=== PATIENT | female | born 1960 | race African-American/Black ===

== ENCOUNTER 2018-05-15 15:04 | Observation (INO) | payer OTHER ==
[2018-05-15] MEDS ORDERED: methylPREDNISolone NA SUCC 125 MG/2 ML VIAL IVPB ONE (16:04)
[2018-05-15] MEDS ORDERED: hydrOXYzine HCL 25 MG TABLET (FP) PO ONE (16:04)
[2018-05-15] MEDS ORDERED: FAMOTIDINE 20 MG/50 ML IVPB 20 MG/50 ML MG IVPB ONE ×3 (16:23→16:30)
[2018-05-15] MEDS ORDERED: SODIUM CHLORIDE 1,000 ML IV STA (16:23)
--- NOTE | 2018-05-15 16:23 | PDOC ---
History of Present Illness - General Stated Complaint: RESPIRATORY PROBLEMS Time Seen by Provider: 05/15/18 15:12 - History of Present Illness Initial Comments: 05/15/18 16:17 57 F with h/o HTN, COPD presenting to ED with rash x 2 days. Pt states that she first noticed the rash yesterday after eating at [employer]. She reports having eggs, potatoes, and omani toast with maple syrup. Shortly after eating, she developed a rash on her chin and neck. Pt denies any tongue swelling, denies SOB , denies difficulty swallowing or speaking. Pt took benadryl and applied hydrocortisone ointment with mild improvement in her symptoms. Today, she ate eggs for breakfast and reports breaking out in a rash all over her body. Pt denies any F/C. Denies any other symptoms other than rash. No h/o prior allergic reactions. No new medications. No new soaps/detergents. Past History - Past Medical History Allergies/Adverse Reactions: Allergies Allergy/AdvReac Type Severity Reaction Status Date / Time No Known Allergies Allergy Verified 11/17/17 13:25 Home Medications: Ambulatory Orders Enalapril Maleate 20 mg PO DAILY 11/17/17 Metoprolol Succinate 40 mg PO DAILY 11/17/17 Omeprazole 20 mg PO DAILY 11/17/17 Procardia Xl 90 mg PO DAILY 11/17/17 Simvastatin 40 mg PO HS 11/17/17 Singulair 1 tab PO HS 11/17/17 Hydrochlorothiazide [Hctz -] 1 cap PO DAILY 12/01/17 Hydroxyzine HCl 25 mg PO Q6H PRN #20 tablet 05/16/18 Anemia: No Asthma: Yes COPD: Yes DVT: No Dementia: No Diabetes: Yes Dialysis: No GI Disorders: No Disorders: No HTN: Yes Hypercholesterolemia: Yes Kidney Stones: No Liver Disease: No Psychiatric Problems: No Seizures: No Thyroid Disease: No Lung CA: No Other medical history: Glaucoma - Surgical History Abdominal Surgery: No Appendectomy: No Cardiac Surgery: No Cholecystectomy: No Gastric Stapling: No GI Surgery: No Lung Surgery: No Neurologic Surgery: No - Immunization History Immunization Up to Date: Yes - Suicide/Smoking/Psychosocial Hx Smoking History: Never smoked Have you smoked in the past 12 months: No Number of Cigarettes Smoked Daily: 0 If you are a former smoker, when did you quit?: 2000 Cigars Per Day: 0 Information on smoking cessation initiated: Yes 'Breaking Loose' booklet given: 05/12/18 Hx Alcohol Use: No Drug/Substance Use Hx: No Substance Use Type: None Review of Systems - Review of Systems Comments:: 05/15/18 16:21 "GENERAL/CONSTITUTIONAL: No fever or chills. No weakness. HEAD, EYES, EARS, NOSE AND THROAT: No change in vision. No ear pain or discharge. No sore throat. CARDIOVASCULAR: No chest pain or shortness of breath. RESPIRATORY: No cough, wheezing, or hemoptysis. GASTROINTESTINAL: No nausea, vomiting, diarrhea or constipation. GENITOURINARY: No dysuria, frequency, or change in urination. MUSCULOSKELETAL: No joint or muscle swelling or pain. No neck or back pain. SKIN: + rash NEUROLOGIC: No headache, vertigo, loss of consciousness, or change in strength/ sensation. ENDOCRINE: No increased thirst. No abnormal weight change. HEMATOLOGIC/LYMPHATIC: No anemia, easy bleeding, or history of blood clots. ALLERGIC/IMMUNOLOGIC: No hives or skin allergy. " *Physical Exam - Vital Signs Last Vital Signs Temp Pulse Resp BP Pulse Ox 98.6 F 105 H 22 139/40 96 05/15/18 15:15 05/15/18 15:15 05/15/18 15:15 05/15/18 15:15 05/15/18 15:15 - Physical Exam Comments: 05/15/18 16:22 "GENERAL: Awake, alert, and fully oriented, in no acute distress. HEAD: No signs of trauma EYES: PERRLA, EOMI, sclera anicteric, conjunctiva clear ENT: Auricles normal inspection, hearing grossly normal, nares patent, oropharynx clear without exudates. Moist mucosa NECK: Nontender, no stepoffs, Normal ROM, supple, no lymphadenopathy, JVD, or masses LUNGS: Breath sounds equal, clear to auscultation bilaterally. No wheezes, and no crackles HEART: Regular rate and rhythm, normal S1 and S2, no murmurs, rubs or gallops ABDOMEN: Soft, nontender, normoactive bowel sounds. No guarding, no rebound. No masses EXTREMITIES: Normal range of motion, no edema. No clubbing or cyanosis. No cords, erythema, or tenderness NEUROLOGICAL: Cranial nerves II through XII intact. 5/5 strength and sensation in all extremities, Normal speech, normal gait, normal cerebellar function SKIN: diffuse maculopapular rash to face, neck, chest, back, arms, legs - no oral lesions, no palmar involvement " ED Treatment Course - LABORATORY CBC & Chemistry Diagram: 05/16/18 07:28 05/16/18 07:28 Medical Decision Making - Medical Decision Making 05/15/18 16:22 57 F with rash x 2 days. Likely allergic reaction, possibly to eggs. Pt with no airway involvement. No other organ system involvement, no evidence of anaphylaxis. - Atarax - Solumedrol *DC/Admit/Observation/Transfer Diagnosis at time of Disposition: Urticaria - Discharge Dispostion Disposition: HOME Condition at time of disposition: Improved - Prescriptions - Referrals - Patient Instructions - Post Discharge Activity - Attestations Physician Attestion: 05/17/18 08:33 I, Dr. Ravin Crandall MD, attest that this document has been prepared under my direction and personally reviewed by me in its entirety. I further attest, that it accurately reflects all work, treatment, procedures and medical decision -making performed by me.
[2018-05-15] MEDS ORDERED: methylPREDNISolone NA SUCC 125 MG/2 ML VIAL ONE (16:29)
--- NOTE | 2018-05-15 18:11 | PDOC ---
*Physical Exam - Vital Signs Last Vital Signs Temp Pulse Resp BP Pulse Ox 98.6 F 105 H 22 139/40 96 05/15/18 15:15 05/15/18 15:15 05/15/18 15:15 05/15/18 15:15 05/15/18 15:15 - Physical Exam Comments: 05/15/18 18:06 VSS, O2 98% room air comfortably asleep but arousable to voice after meds no rash, no swelling, itching resolved OP clear and patient, voice clear, lungs clear 05/15/18 18:58 urticaria to LUE and single hive on L nondenominational. patient airway, clear lungs Heart Score/ECG Review #1 ECG reviewed & interpreted by me at: 18:47 General ECG Interpretation: Sinus Rhythm, Normal Rate (103), Normal Intervals ( qtc 461), No acute ischemic changes ED Treatment Course - LABORATORY CBC & Chemistry Diagram: 05/15/18 18:55 05/15/18 18:55 - Medications Given in the ED: ED Medications Discontinued Medications Generic Name Dose Route Start Last Admin Trade Name Freq PRN Reason Stop Dose Admin Hydroxyzine HCl 50 mg 05/15/18 16:04 05/15/18 16:06 Atarax - PO 05/15/18 16:05 50 mg ONCE ONE Administration Sodium Chloride 1,000 mls @ 1,000 mls/hr 05/15/18 16:23 05/15/18 16:25 Normal Saline - IV 05/15/18 17:22 1,000 mls/hr ASDIR STA Administration Famotidine/Sodium Chloride 20 mg in 50 mls @ 100 mls/hr 05/15/18 16:23 16:25 Pepcid 20 Mg Premixed Ivpb - IVPB 05/15/18 16:52 100 mls/hr ONCE ONE Administration Methylprednisolone Sodium Succinate 125 mg 05/15/18 16:04 05/15/18 16:06 Solu-Medrol - IVPB 05/15/18 16:05 125 mg ONCE ONE Administration Medical Decision Making - Medical Decision Making 05/15/18 18:07 Received signout on this 57-year-old woman with likely new onset food ALLERGY, presented with hives but otherwise hemodynamically stable. She took Benadryl prior to arrival, received Atarax/steroids/ranitidine on arrival here and has been progressively improving over the last 3 hours. Her symptoms have now resolved, she never had airway or respiratory issues, feels much more comfortable. Will need ALLERGY testing as an outpatient, will need steroid course and will prescribe EpiPen, lives in the area and will take a taxi/bus home, understands return criteria. 05/15/18 18:38 Upon reassessment for discharge, patient noted return of itching to her L arm. Hives again noted to L arm and a single one on her L nondenominational. Will give another dose of benadryl. No airway issues. Given ongoing allergy symptoms and repeat doses, will place on observation. 05/15/18 20:11 Accepted for obs med/surg by Dr. Caraballo, signout given to Dr. Cruz. *DC/Admit/Observation/Transfer Diagnosis at time of Disposition: Urticaria - Discharge Dispostion Condition at time of disposition: Improved Decision to Admit order: Yes - Prescriptions Prescriptions: Epinephrine [Epipen 2-Yayo] 0.3 mg IJ ASDIR #1 kit Prednisone [Prednisone 50 MG TABLETS] 50 mg PO DAILY #5 tablet - Referrals Referrals: Kailee Gallegos MD [Staff Physician] - - Patient Instructions Additional Instructions: Activity as tolerated. Stay hydrated. Your symptoms are most likely due to an ALLERGIC reaction, the source of the ALLERGIC reaction remains unknown but might be eggs. Take prednisone as prescribed for the next 5 days. You may need additional doses of Benadryl for any rash or itching, especially over the next 24 hours while the prednisone begins to work. EpiPen was also prescribed, carry it with you at all times and use as needed for any sudden or severe ALLERGIC reaction such as throat closing or difficulty breathing. Continue your medications as previously prescribed by your physician. You should follow up with your primary doctor as soon as possible regarding today's emergency department visit. You should also see a vacuum extractor operator or salon stylist as soon as possible for ALLERGY testing, consider calling Dr. Gallegos for an appointment. Return to the emergency department for any new or concerning symptoms, particularly persistent or worsening rash or itching, throat swelling or difficulty breathing/swallowing/speaking, shortness of breath. - Post Discharge Activity
[2018-05-15 19:04] LABS: HEMATOCRIT 44.6 % (32.4-45.2); HEMOGLOBIN 14.6 GM/dL (10.7-15.3); MCH 27.6 pg (25.7-33.7); MCHC 32.8 g/dl (32.0-36.0); MEAN CELL VOLUME 84.3 fl (80-96); MEAN PLT VOLUME 8.4 fl (7.5-11.1); PLATELET COUNT 181 K/MM3 (134-434); RBC 5.29 M/mm3 (3.60-5.2); RDW 15.3 % (11.6-15.6); WHITE BLOOD COUNT 16.4 K/mm3 (4.0-10.0)
[2018-05-15 19:48] LABS: ALBUMIN 3.6 g/dl (3.4-5.0); ANION GAP 9 (8-16); BLOOD UREA NITROGEN 15 mg/dL (7-18); CALCIUM 8.6 mg/dL (8.5-10.1); CHLORIDE 107 mmol/L (98-107); CO2 27 mmol/L (21-32); GLUCOSE,RANDOM 94 mg/dL (74-106); POTASSIUM 3.7 mmol/L (3.5-5.1); SODIUM 143 mmol/L (136-145)
[2018-05-15 19:52] LABS: ALK PHOS 93 U/L (45-117); BILIRUBIN,TOTAL 0.9 mg/dL (0.2-1.0); CREATININE 1.2 mg/dL (0.55-1.02); SGOT/AST 19 U/L (15-37); SGPT/ALT 27 U/L (12-78); TOT PROT 6.9 g/dl (6.4-8.2)
[2018-05-15 22:47] VITALS: BMI 41.1
[2018-05-15] MEDS ORDERED: diphenhydrAMINE HCL 25 MG CAPSULE (FP) PO PRN (23:27)
[2018-05-15] MEDS ORDERED: IBUPROFEN 400 MG TABLET (FP) PO PRN (23:28)
--- NOTE | 2018-05-15 23:29 | HP ---
CHIEF COMPLAINT: Generalized itchy rashes PCP: HISTORY OF PRESENT ILLNESS: Pt is a 57 F with PMHx of HTN, asthma/COPD, Vertigo, glaucoma, HLD, Acid reflux , DM presenting to ED with recurrent generalized rash x 2 days. Pt noticed the rash yesterday while driving home from [facility] after eating eggs, potatoes, and equatorial guine[place] toast with maple syrup. The rash started on her chin and neck and then spread all over her axilla, abdomen, groin, gluteal area, itchy, red and elevated. No associated tongue swelling, no SOB, no difficulty swallowing or speaking. Pt took benadryl and applied hydrocortisone ointment repeatedly with mild improvement in her symptoms. She came to the ED today because of the worsening itch and rash. Never had similar symptoms in past. Pt is asthmatic on albuterol. No change in medication, soap, perfume. In the ED she received steroids and H1 and H2 blockers with no relief initially. ER course was notable for: (1) CBC, hydroxyzine, benadry, pepcid, solumed (2) (3) Recent Travel: PAST MEDICAL HISTORY: HTN, asthma/COPD, Vertigo, glaucoma, HLD, Acid reflux, DM PAST SURGICAL HISTORY: Social History: Smoking: Quit smoking 1.5 packs/day 17years ago Alcohol:wine x2 a day Drugs: Denies Family History: Allergies No Known Allergies Allergy (Verified 11/17/17 13:25) HOME MEDICATIONS: Home Medications Medication Instructions Recorded Enalapril Maleate 20 mg PO DAILY 11/17/17 Ibuprofen 800 mg PO DAILY PRN 11/17/17 Metoprolol Succinate 40 mg PO DAILY 11/17/17 Omeprazole 20 mg PO DAILY 11/17/17 Procardia Xl 90 mg PO DAILY 11/17/17 Simvastatin 40 mg PO HS 11/17/17 Singulair 1 tab PO HS 11/17/17 Hydrochlorothiazide [Hctz -] 1 cap PO DAILY 12/01/17 REVIEW OF SYSTEMS CONSTITUTIONAL: Absent: fever, chills, diaphoresis, generalized weakness, malaise, loss of appetite, weight change HEENT: Absent: rhinorrhea, nasal congestion, throat pain, throat swelling, difficulty swallowing, mouth swelling, ear pain, eye pain, visual changes CARDIOVASCULAR: Absent: chest pain, syncope, palpitations, irregular heart rate, lightheadedness , peripheral edema RESPIRATORY: Has SOB at rest consistent with her asthma that did not change with rash GASTROINTESTINAL: Absent: abdominal pain, abdominal distension, nausea, vomiting, diarrhea, constipation, melena, hematochezia GENITOURINARY: Absent: dysuria, frequency, urgency, hesitancy, hematuria, flank pain, genital pain MUSCULOSKELETAL: Absent: myalgia, arthralgia, joint swelling, back pain, neck pain SKIN: Absent: rash, itching, pallor HEMATOLOGIC/IMMUNOLOGIC: Absent: easy bleeding, easy bruising, lymphadenopathy, frequent infections ENDOCRINE: Absent: unexplained weight gain, unexplained weight loss, heat intolerance, cold intolerance NEUROLOGIC: Absent: headache, focal weakness or paresthesias, dizziness, unsteady gait, seizure, mental status changes, bladder or bowel incontinence PSYCHIATRIC: Absent: anxiety, depression, suicidal or homicidal ideation, hallucinations. PHYSICAL EXAMINATION Vital Signs - 24 hr 05/15/18 05/15/18 05/15/18 15:15 20:12 20:19 Temperature 98.6 F 98.7 F 98.6 F Pulse Rate 105 H 94 H Pulse Rate [ 81 Right Radial] Respiratory 22 20 18 Rate Blood Pressure 139/40 129/55 Blood Pressure 121/61 [Right Arm] O2 Sat by Pulse 96 97 Oximetry (%) 05/15/18 05/15/18 21:30 22:50 Temperature Pulse Rate Pulse Rate [ Right Radial] Respiratory Rate Blood Pressure Blood Pressure [Right Arm] O2 Sat by Pulse 95 98 Oximetry (%) GENERAL: Obese lady, Awake, alert, and fully oriented, in no acute distress. HEAD: Normal with no signs of trauma. Few erythematous rashes on forehead and chin, EYES: Pupils equal, round and reactive to light, extraocular movements intact EARS, NOSE, THROAT: Moist mucous membranes. No tongue swelling, no oral rashes LUNGS: Breath sounds equal, clear to auscultation bilaterally. No wheezes, and no crackles. HEART: Regular rate and rhythm, normal S1 and S2 without murmur ABDOMEN: obese, Soft, nontender, not distended, normoactive bowel sounds, MUSCULOSKELETAL: scattered red raised raashes scattered over neck, axilla, flanks bilaterally, intergluteal fold, groin, below breasts, itchy LOWER EXTREMITIES: No peripheral edema. old non active hyperpigmented flat skin lesions NEUROLOGICAL: AAOx 3 .No lateralizing signs, moves all limbs CBC, BMP 05/16/18 07:28 05/16/18 07:28 Laboratory Results - last 24 hr 05/15/18 05/15/18 18:55 18:55 WBC 16.4 H RBC 5.29 H Hgb 14.6 Hct 44.6 MCV 84.3 MCH 27.6 MCHC 32.8 RDW 15.3 Plt Count 181 MPV 8.4 Sodium 143 Potassium 3.7 Chloride 107 Carbon Dioxide 27 Anion Gap 9 BUN 15 Creatinine 1.2 H Creat Clearance w eGFR 45.98 Random Glucose 94 Calcium 8.6 Total Bilirubin 0.9 AST 19 ALT 27 Alkaline Phosphatase 93 Total Protein 6.9 Albumin 3.6 ASSESSMENT/PLAN: 57 F with PMHx of HTN, asthma/COPD, Vertigo, glaucoma, HLD, Acid reflux, DM presenting to ED with recurrent generalized urticarial rash Generalized Urticarial maculopapular rash Likely allergic reaction with Unknown triggers Patient is likely atopic with hx of asthma, could be food related allergy maybe to eggs Lesions starting to improve on reassessment following steroids and H1 and H2 antags Start prednisone 40mg PO daily Continue benadryl 25mg PO prn 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 CBC w/diff Tachycardia EKG-Sinus tachy (103), Normal Intervals (qtc 461), No acute ischemic changes Initial tachycardia, that resolved Could be related to itch discomfort, Resume home metoprolol Leucocytosis Unknown etiology Could be related to steroids given CBC with diff Monitor Hold off antibiotics for now HTN BP relatively well controlled Cont home Hydrochlorothiazide, enalapril, metoprolol Med rec when possible asthma/COPD Not in active exacerbation Continue home singulair AJ Cr-1.2 Baseline unknown Cr clearance 45 Monitor , repeat CMP DM Pt reported hx relatively euglycemic Monitor PPx heparin sc FEN No standing fluids at this time-pt appears euvolemic Monitor lytes,mg, Ph Diabetic/low sodium diet Dispo Observation for likely dc in am with improvement of symptoms Visit type - Emergency Visit Emergency Visit: Yes ED Registration Date: 05/15/18 Care time: The patient presented to the Emergency Department on the above date and was hospitalized for further evaluation of their emergent condition. - New Patient This patient is new to me today: Yes Date on this admission: 05/16/18 - Critical Care Critical Care patient: No Hospitalist Screening - Colonoscopy Questionnaire Colonoscopy Questionnaire: Colonoscopy Questionnaire - Patient: 50 - 75 years old and never had a screening colonoscopy: Unknown History of colon or rectal polyps, or CA: Unknown History of IBD, Crohn's disease or UC: Unknown History of abdominal radiation therapy as a child: Unknown - Relative: 1 with colon or rectal CA, or polyps at age 60 or younger: Unknown Colon or rectal CA diagnosed at age 45 or younger: Unknown Multiple relatives with colon or rectal CA: Unknown - Outcome: Screening Result: Negative Screen
--- NOTE | 2018-05-15 23:36 | PN ---
Teaching Attending Note Name of Resident: Migdalia Cruz ATTENDING PHYSICIAN STATEMENT I saw and evaluated the patient. Chart, data, imaging reviewed. I reviewed the resident's note and discussed the case with the resident. I agree with the resident's findings and plan as documented. SUBJECTIVE: 57 F with h/o HTN and asthma/COPD c/o of rash which started after she ate set[place] toast at [employer] one day ago. Rash was pruritic and started on chin and spread to torso and upper extremities. This started abruptly. Pt denied taking any new medications or cosmetics. No other unusual foods that she can recall. No recent travels. There were no problems with breathing. OBJECTIVE: Last Vital Signs Temp Pulse Resp BP Pulse Ox 98.6 F 81 18 121/61 98 05/15/18 20:19 05/15/18 20:19 05/15/18 20:19 05/15/18 20:19 05/15/18 22:50 general- nad, appears comfortable heent- at, nc, no ulcers in mouth neck -supple cv-s1+S2+rrr chest - cta b/l abdomen- soft, nt skin -raised erythematous rash on torso and upper extremities Abnormal Lab Results 05/15/18 05/15/18 18:55 18:55 WBC 16.4 H RBC 5.29 H Creatinine 1.2 H ASSESSMENT AND PLAN: #57yo woman with urticartia unknown trigger but may have been food allergy. CLinically and hemodynamically stable. 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 -order CBC differential -monitor CBC -no antibiotics at this time -DVT ppx- heparin sc
[2018-05-16 04:17] VITALS: PULSE 97
[2018-05-16 08:12] LABS: BASO % 0.3 % (0-2.0); HEMATOCRIT 42.3 % (32.4-45.2); LYMPH % 7.1 % (8-40); MEAN PLT VOLUME 8.7 fl (7.5-11.1); MONO % 2.2 % (3.8-10.2); NEUT % 90.4 % (42.8-82.8); PLATELET COUNT 169 K/MM3 (134-434); RBC 4.98 M/mm3 (3.60-5.2); RDW 15.4 % (11.6-15.6); WHITE BLOOD COUNT 14.7 K/mm3 (4.0-10.0)
[2018-05-16 08:28] LABS: ALBUMIN 3.4 g/dl (3.4-5.0); ALK PHOS 86 U/L (45-117); ANION GAP 8 (8-16); BILIRUBIN,TOTAL 0.5 mg/dL (0.2-1.0); BLOOD UREA NITROGEN 17 mg/dL (7-18); CALCIUM 9.1 mg/dL (8.5-10.1); CHLORIDE 107 mmol/L (98-107); CO2 28 mmol/L (21-32); CREATININE 1.2 mg/dL (0.55-1.02); GLUCOSE,RANDOM 146 mg/dL (74-106); MAGNESIUM 2.5 mg/dL (1.8-2.4); PHOSPHOROUS 2.8 mg/dL (2.5-4.9); POTASSIUM 3.9 mmol/L (3.5-5.1); SGOT/AST 13 U/L (15-37); SGPT/ALT 26 U/L (12-78); SODIUM 143 mmol/L (136-145); TOT PROT 6.8 g/dl (6.4-8.2)
[2018-05-16] MEDS ORDERED: HYDROCHLOROTHIAZIDE 25 MG TABLET (FP) PO SCH (10:00)
[2018-05-16] MEDS ORDERED: ENALAPRIL MALEATE 10 MG TABLET (FP) PO SCH (10:00)
[2018-05-16] MEDS ORDERED: NIFEdipine E.R. 90 MG TABLET (FP) PO SCH (10:00)
[2018-05-16] MEDS ORDERED: predniSONE 20 MG TABLET (UD) PO SCH (10:00)
[2018-05-16] MEDS ORDERED: PANTOPRAZOLE 20 MG TABLET (FP) PO SCH (10:00)
[2018-05-16 10:09] VITALS: BP 120/77; TEMP 97.9
--- NOTE | 2018-05-16 10:23 | DS ---
Physical Exam: SUBJECTIVE: Patient seen and examined. rash mostly resolved. itchying resolved. states rash started PRIOR to going to [facility] but got exacerbated once she started eating. states she been having increased family stressors recently. no previous episodes. no new medications, creams or soaps OBJECTIVE: Vital Signs Period Temp Pulse Resp BP Sys/Mar Pulse Ox Last 24 Hr 97.9 F-98.7 F 81-105 18-22 116-139/40-77 95-99 PHYSICAL EXAM GENERAL: The patient is awake, alert, and fully oriented, in no acute distress. HEAD: Normal with no signs of trauma. EYES: PERRL, extraocular movements intact, sclera anicteric, conjunctiva clear. ENT: Ears normal, nares patent, oropharynx clear without exudates, moist mucous membranes. NECK: Trachea midline, full range of motion, supple. LUNGS: Breath sounds equal, clear to auscultation bilaterally, no wheezes, no crackles, no accessory muscle use. HEART: Regular rate and rhythm, S1, S2 without murmur, rub or gallop. ABDOMEN: Soft, nontender, nondistended, normoactive bowel sounds, no guarding, no rebound, no hepatosplenomegaly, no masses. EXTREMITIES: 2+ pulses, warm, well-perfused, no edema. NEUROLOGICAL: Cranial nerves II through XII grossly intact. Normal speech, gait not observed. PSYCH: Normal mood, normal affect. SKIN: Warm, dry, normal turgor, faint papular lesion on torso under axillae, no oozing or drainage noted. no rash appreciated on extremities LABS Laboratory Results - last 24 hr 05/15/18 05/15/18 05/16/18 18:55 18:55 07:28 WBC 16.4 H 14.7 H RBC 5.29 H 4.98 Hgb 14.6 14.0 Hct 44.6 42.3 MCV 84.3 85.0 MCH 27.6 28.0 MCHC 32.8 33.0 RDW 15.3 15.4 Plt Count 181 169 MPV 8.4 8.7 Absolute Neuts (auto) 13.3 Neutrophils % 90.4 H Lymphocytes % 7.1 L Monocytes % 2.2 L Eosinophils % 0.0 Basophils % 0.3 Nucleated RBC % 0 Sodium 143 Potassium 3.7 Chloride 107 Carbon Dioxide 27 Anion Gap 9 BUN 15 Creatinine 1.2 H Creat Clearance w eGFR 45.98 Random Glucose 94 Calcium 8.6 Phosphorus Magnesium Total Bilirubin 0.9 AST 19 ALT 27 Alkaline Phosphatase 93 Total Protein 6.9 Albumin 3.6 05/16/18 07:28 WBC RBC Hgb Hct MCV MCH MCHC RDW Plt Count MPV Absolute Neuts (auto) Neutrophils % Lymphocytes % Monocytes % Eosinophils % Basophils % Nucleated RBC % Sodium 143 Potassium 3.9 Chloride 107 Carbon Dioxide 28 Anion Gap 8 BUN 17 Creatinine 1.2 H Creat Clearance w eGFR 45.98 Random Glucose 146 H Calcium 9.1 Phosphorus 2.8 Magnesium 2.5 H Total Bilirubin 0.5 AST 13 L ALT 26 Alkaline Phosphatase 86 Total Protein 6.8 Albumin 3.4 HOSPITAL COURSE: Date of Admission:05/15/18 Date of Discharge: 05/16/18 Admitting diagnosis: Uticaria Pre hospital course 57 F with PMHx of HTN, asthma/COPD, Vertigo, glaucoma, HLD, Acid reflux, DM presenting to ED with recurrent generalized rash x 2 days. Pt noticed the rash yesterday while driving home from [facility] after eating eggs, potatoes, and hebrew toast with maple syrup. The rash started on her chin and neck and then spread all over her axilla, abdomen, groin, gluteal area, itchy, red and elevated. No associated tongue swelling, no SOB, no difficulty swallowing or speaking. Pt took benadryl and applied hydrocortisone ointment repeatedly with mild improvement in her symptoms. She came to the ED today because of the worsening itch and rash. Never had similar symptoms in past. Pt is asthmatic on albuterol. No change in medication, soap, perfume. In the ED she received steroids and H1 and H2 blockers with no relief initially. Subsequent hospital course was given solumedrol and benadryl in the ER. rash improved and pruritis resolved. expressed increased stress and anxiety of recently. stated pruritis started prior to going to [facility] however noted the rash after eating frenchtoast but states that she has eaten the same dish in the past. no tongue/lips numbness /tingling/swelling or throat closing. d/c home. surgical appliance fitter referral given Minutes to complete discharge: 40 Discharge Summary Reason For Visit: URTICARIA Current Active Problems Urticaria (Acute) Condition: Improved - Instructions Diet, Activity, Other Instructions: Activity as tolerated. Stay hydrated. Your symptoms are most likely due to an ALLERGIC reaction, the source of the ALLERGIC reaction versus stress. Take hydroxyzine every 6 hours as needed for itchying. This medication can be sedating. No driving or operating heavy machinery while taking this medication. You may also take benadryl if needed. Continue your medications as previously prescribed by your physician. You should follow up with your primary doctor this week Information on an surgical appliance fitter has been provided. You should get allergy testing done to rule out any allergies. Return to the emergency department for any new or concerning symptoms, particularly persistent or worsening rash or itching, throat swelling or difficulty breathing/swallowing/speaking, shortness of breath, numbness/ tingling of the lips or tongue Referrals: Bhavana Washington MD [Staff Physician] - - Home Medications Comprehensive Discharge Medication List: Ambulatory Orders Enalapril Maleate 20 mg PO DAILY 11/17/17 Metoprolol Succinate 40 mg PO DAILY 11/17/17 Omeprazole 20 mg PO DAILY 11/17/17 Procardia Xl 90 mg PO DAILY 11/17/17 Simvastatin 40 mg PO HS 11/17/17 Singulair 1 tab PO HS 11/17/17 Hydrochlorothiazide [Hctz -] 1 cap PO DAILY 12/01/17 Hydroxyzine HCl 25 mg PO Q6H PRN #20 tablet 05/16/18 This patient is new to me today: Yes Date on this admission: 05/16/18 Emergency Visit: Yes ED Registration Date: 05/15/18 Care time: The patient presented to the Emergency Department on the above date and was hospitalized for further evaluation of their emergent condition. Critical Care patient: No - Discharge Referral Referred to [facility] Med [facility] No
[2018-05-16] MEDS ORDERED: MONTELUKAST NA 10 MG TABLET PO SCH (22:00)
[2018-05-16] MEDS ORDERED: ATORVASTATIN CA 20 MG TABLET (FP) PO SCH (22:00)
--- NOTE | 2018-05-18 20:24 | EKG ---
Test Reason : Blood Pressure : / mmHG Vent. Rate : 100 BPM Atrial Rate : 100 BPM P-R Int : 144 ms QRS Dur : 068 ms QT Int : 352 ms P-R-T Axes : 058 006 030 degrees QTc Int : 454 ms POOR DATA QUALITY, INTERPRETATION MAY BE ADVERSELY AFFECTED NORMAL SINUS RHYTHM NORMAL ECG NO PREVIOUS ECGS AVAILABLE Confirmed by MD VARINDER, CONNIE ([id number]) on 05/18/2018 8:24:27 PM Referred By: Confirmed By:CONNIE REEDER MD
== END 2018-05-16 13:25 | disposition home or self-care (01) ==
LOC: JER 15:04 → JERBED 20:12 → J6S 22:26
PROVIDERS: ADMIT Internal Medicine; ATTEND Internal Medicine
PROC: 3E033NZ Introduction of Analgesics, Hypnotics, Sedatives into Peripheral Vein, Percutaneous Approach (ICD-10-PCS; principal; 2018-05-15)
PROC: 3E033GC Introduction of Other Therapeutic Substance into Peripheral Vein, Percutaneous Approach (ICD-10-PCS; 2018-05-15)
PROC: 3E0337Z Introduction of Electrolytic and Water Balance Substance into Peripheral Vein, Percutaneous Approach (ICD-10-PCS; 2018-05-15)
DX: L50.9 Urticaria, unspecified (principal); I10 Essential (primary) hypertension; R00.0 Tachycardia, unspecified; D72.829 Elevated white blood cell count, unspecified; J44.9 Chronic obstructive pulmonary disease, unspecified; E11.9 Type 2 diabetes mellitus without complications; E78.5 Hyperlipidemia, unspecified; H40.9 Unspecified glaucoma; N17.9 Acute kidney failure, unspecified
CPT/HCPCS: 36415; 80053; 83735; 84100; 85025; 85027; 93005; 93010; 96365; 96367; 99285-25; G0378; J7030

== ENCOUNTER 2018-09-10 10:22 | Day surgery (SDC) | payer OTHER ==
[2018-09-09 12:01] VITALS: BMI 35.6
[2018-09-10] MEDS ORDERED: ONDANSETRON 4 MG/2 ML VIAL IVPUSH PRN (12:07)
[2018-09-10] MEDS ORDERED: LACTATED RINGERS SOLUTION 1,000 ML IV SCH (12:15)
[2018-09-10] MEDS ORDERED: MIDAZOLAM HCL 2 MG/2 ML SINGLE DOSE VIAL ONE ×2 (12:25)
[2018-09-10] MEDS ORDERED: PROPOFOL 20 ML ONE (12:32)
[2018-09-10] MEDS ORDERED: SUCCINYLCHOLINE CHLORIDE 200 MG/10 ML VIAL ONE (12:32)
[2018-09-10] MEDS ORDERED: ceFAZolin SODIUM 1 GM VIAL IVPB ONE (12:50)
--- NOTE | 2018-09-10 14:34 | HP ---
Admitting History and Physical - Admission Chief Complaint: Left lower extremity varicose veins. Here for removal. Limitations to Obtaining History: No Limitations - Past Medical History Cardiovascular: Yes: HTN, Hyperlipdemia Pulmonary: Yes: Asthma, COPD Gastrointestinal: Yes: GERD Endocrine: Yes: Diabetes Mellitus - Smoking History Smoking history: Never smoked Have you smoked in the past 12 months: No Aproximately how many cigarettes per day: 0 If you are a former smoker, when did you quit?: 1999 - Alcohol/Substance Use Hx Alcohol Use: Yes (wine) Home Medications - Allergies Allergies/Adverse Reactions: Allergies Allergy/AdvReac Type Severity Reaction Status Date / Time No Known Allergies Allergy Verified 09/09/18 11:53 - Home Medications Home Medications: Ambulatory Orders Enalapril Maleate 20 mg PO DAILY 11/17/17 Metoprolol Succinate 40 mg PO DAILY 11/17/17 Omeprazole 20 mg PO DAILY 11/17/17 Procardia Xl 90 mg PO DAILY 11/17/17 Simvastatin 40 mg PO HS 11/17/17 Singulair 1 tab PO HS 11/17/17 Hydrochlorothiazide [Hctz -] 1 cap PO DAILY 12/01/17 Hydroxyzine HCl 25 mg PO Q6H PRN #20 tablet 05/16/18 Hydrocortisone 0.5% Cream [Hytone 0.5% Cream -] 1 applic TP BID #1 tube Albuterol 2.5/Ipratropium 0.5 [Duoneb -] 1 neb IH BID 09/02/18 Albuterol Sulfate Inhaler - [Ventolin Hfa Inhaler -] 1 - 2 inh PO QID 09/02/18 Fluticasone Propionate [Flovent Diskus] 220 mcg IH BID 09/02/18 Glipizide 5 mg PO DAILY 09/02/18 Meclizine HCl 25 mg PO TID 09/02/18 Review of Systems - Review of Systems Constitutional: reports: No Symptoms Eyes: reports: No Symptoms HENT: reports: No Symptoms Neck: reports: No Symptoms Cardiovascular: reports: No Symptoms Respiratory: reports: No Symptoms Gastrointestinal: reports: No Symptoms Genitourinary: reports: No Symptoms Musculoskeletal: reports: No Symptoms Integumentary: reports: No Symptoms Neurological: reports: No Symptoms Endocrine: reports: No Symptoms Hematology/Lymphatic: reports: No Symptoms Psychiatric: reports: No Symptoms Physical Examination Vital Signs: Vital Signs Temperature 98.1 F 09/10/18 11:04 Pulse Rate 85 09/10/18 11:04 Respiratory Rate 20 09/10/18 11:04 Blood Pressure 119/80 09/10/18 11:04 O2 Sat by Pulse Oximetry (%) 95 09/10/18 11:04 Constitutional: Yes: Well Nourished, No Distress, Calm Eyes: Yes: WNL, Conjunctiva Clear, EOM Intact HENT: Yes: WNL, Atraumatic, Normocephalic Neck: Yes: WNL, Supple, Trachea Midline Cardiovascular: Yes: WNL, Regular Rate and Rhythm Respiratory: Yes: WNL, Regular, CTA Bilaterally Gastrointestinal: Yes: WNL, Normal Bowel Sounds Musculoskeletal: Yes: WNL Extremities: Yes: WNL Edema: No Peripheral Pulses WNL: Yes Integumentary: Yes: WNL Neurological: Yes: WNL, Alert, Oriented ...Motor Strength: WNL Psychiatric: Yes: WNL Problem List - Problems (1) Varicose veins of left lower extremity Assessment/Plan: Varicose veins left lower extremity 1. For phlebectomy today Code(s): I83.92 - ASYMPTOMATIC VARICOSE VEINS OF LEFT LOWER EXTREMITY
--- NOTE | 2018-09-10 14:35 | OP ---
Operative Note - Note: Operative Date: 09/10/18 Pre-Operative Diagnosis: left lower extremity varicose veins Operation: Stab phlebectomy left lower extremity varicose veins. 15 stabs performed Post-Operative Diagnosis: Same as Pre-op Surgeon: Reji Wagoner Anesthesia: General, Fractional Estimated Blood Loss (mls): 150 Operative Report Dictated: Yes
[2018-09-10] MEDS ORDERED: oxyCODONE HCL 5 MG TABLET PO PRN (15:38)
[2018-09-10 19:09] VITALS: BP 114/69; PULSE 86; TEMP 97.9
--- NOTE | 2018-09-14 17:18 | PATH ---
Surgical Pathology Report Patient Name: PARISH VANESSA [facility]. Rec. #: [id number] /Age/Gender: 1960 (Age: 58) / F Account: [id number] Location: [facility] SURGICAL Taken: 09/10/2018 Received: 09/11/2018 Reported: 09/14/2018 Physicians: Reji Wagoner Specimen(s) Received VARICOSE VEINS Clinical History Varicose vein left leg Final Diagnosis VARICOSE VEINS, LOWER LEG, LEFT PHLEBECTOMY: VEINS WITH INTIMAL HYPERTROPHY AND FIBROSIS. Electronically Signed Shannan Hilliard M.D. Gross Description Received in formalin labeled "varicose veins," is a 4.0 x 3.0 x 0.6 cm aggregate of [place] portions of vasculature, consistent with varicose veins. Color Corrector sections are submitted in one cassette. 09/11/2018 saudi09/11/2018
--- NOTE | 2018-09-17 13:34 | OP ---
DATE OF OPERATION: 09/10/2018 PREOPERATIVE DIAGNOSIS: Left lower extremity varicose veins. POSTOPERATIVE DIAGNOSIS: Left lower extremity varicose veins. PROCEDURE: Stab phlebectomy left leg, 15 stabs. SURGEON: Reji Abbott DO ANESTHESIA: Fractional. BLOOD LOSS: 150 mL. INDICATIONS: The patient is a 58-year-old female that comes into ambulatory surgery with left lower extremity varicose veins. The varicosities are very painful and need to be removed. Patient came into ambulatory surgery. Patient was consented for the procedure understanding all risks, benefits, and alternatives. OPERATIVE FINDINGS: The patient was then brought into the operating room, laid on the operative table supine manner, and general anesthesia was administered to the patient. We then prepped and draped the left lower extremity in a sterile surgical manner. Prior to coming into the operating room patient was stood up in OR holding and all the varicosities were marked using a skin marker. Once the left leg was prepped and draped in a sterile surgical manner, we then went ahead and using an 11-blade we made small stabs over the varicosities and using vein hooks the vein was removed. All the veins were removed going from starting from the call all the way up into the thigh. In this manner, 15 stab incisions were made, and the varicosities were removed using vein hooks and mosquito clamps. Pressure was held over all the stab incisions due to bleeding and pressure was held and once bleeding subsided all of the stab incisions were closed using Steri-Strips. The leg was wet and dried, and 4 x 4's, Kerlix, and Angel bandage was placed from the foot all the way up into the thigh. The patient tolerated the procedure well with no complications. All varicose veins that were removed were sent to Pathology. Total blood loss 150 mL. Patient transferred to PACU in stable condition. REJI ABBOTT DO [employer]/[id number]
== END 2018-09-10 19:05 | disposition home or self-care (01) ==
LOC: JASU-SURG 10:22
PROVIDERS: ATTEND Surgery Vascular Surgery
PROC: 06BY0ZZ Excision of Lower Vein, Open Approach (ICD-10-PCS; principal; 2018-09-10 12:00)
DX: I83.812 Varicose veins of left lower extremity with pain (principal); E11.9 Type 2 diabetes mellitus without complications; J44.9 Chronic obstructive pulmonary disease, unspecified; I10 Essential (primary) hypertension; E66.9 Obesity, unspecified; M06.9 Rheumatoid arthritis, unspecified
CPT/HCPCS: 82962; 86850; 86900; 86901; 88304-TC; 94760

== ENCOUNTER 2021-10-25 16:09 | Emergency (ER) | payer OTHER ==
[2021-10-25 16:37] VITALS: BP 150/100; PULSE 97; TEMP 97.3; BMI 47.5
[2021-10-25] MEDS ORDERED: ALBUTEROL SO4 HFA INHALER IH ONE ×2 (17:23→17:42)
[2021-10-25 18:10] LABS: VENOUS BASE EXCESS 2.8 mmol/L (-2-2); VENOUS O2 SATURATION 84.2 % (70-80); VENOUS PCO2 47.8 mmHg (38-52); VENOUS PH 7.394 (7.310-7.410)
[2021-10-25 18:12] LABS: BASO % 0.5 % (0-2.0); HEMATOCRIT 46.2 % (32.4-45.2); HEMOGLOBIN 15.2 GM/dL (10.7-15.3); LYMPH % 16.9 % (8-40); MCH 27.6 pg (25.7-33.7); MCHC 32.8 g/dl (32.0-36.0); MONO % 7.9 % (3.8-10.2); NEUT % 73.7 % (42.8-82.8); PLATELET COUNT 80 10^3/uL (134-434); RDW 15.9 % (11.6-15.6)
[2021-10-25 18:35] LABS: CHLORIDE 106 mmol/L (98-107); SODIUM 143 mmol/L (136-145)
[2021-10-25 18:38] LABS: ALBUMIN 3.7 g/dl (3.4-5.0); ANION GAP 7 MMOL/L (8-16); BLOOD UREA NITROGEN 18.1 mg/dL (7-18); CALCIUM 9.3 mg/dL (8.5-10.1); CO2 29 mmol/L (21-32)
[2021-10-25 18:39] LABS: GLUCOSE,RANDOM 78 mg/dL (74-106)
[2021-10-25 18:41] LABS: SGPT/ALT 23 U/L (13-61)
[2021-10-25 18:42] LABS: CREATININE 1.3 mg/dL (0.55-1.3)
[2021-10-25 18:43] LABS: BILIRUBIN,TOTAL 0.4 mg/dL (0.2-1); SGOT/AST 14 U/L (15-37)
[2021-10-25 18:44] LABS: ALK PHOS 100 U/L (45-117)
== END 2021-10-25 19:37 | disposition home or self-care (01) ==
LOC: JER 16:09
PROC: 3E0F7GC Introduction of Other Therapeutic Substance into Respiratory Tract, Via Natural or Artificial Opening (ICD-10-PCS; principal; 2021-10-25)
DX: J44.1 Chronic obstructive pulmonary disease with (acute) exacerbation (principal)
CPT/HCPCS: 71045-TC-FY; 80053; 82010; 82550; 82553; 82803; 82962; 84484; 85025; 87804; 87807; 93005; 93010; 99285-25; C9803; U0003; U0005